=== PATIENT | female | born 1980 | race Caucasian/White ===

== ENCOUNTER 2023-11-28 13:29 | Emergency (ER) | payer OTHER, SELFPAY ==
[2023-11-28 13:40] VITALS: BP 140/96
--- NOTE | 2023-11-28 14:01 | ED.GENMED ---
History of Present Illness
General
Chief Complaint: Headache
Source: patient
Time Seen by Provider: 11/28/23 13:50
Travel History
Have you had any contact with someone who has COVID-19?: No
Do you have any symptoms of coronavirus? Fever > 100 degrees, chills, cough, shortness of breath, sore throat, loss of taste or smell, muscle aches, or headache?: No
History of Present Illness
History of Present Illness:
43-year-old female presents to the emergency room complaining of abnormal feeling on the left side of her face. Patient looked in the mirror and noted that her smile was asymmetric. Patient was in her usual state of health until 2 or 3 days ago
she began experiencing a discomfort in her left temporal occipital region. She was seen at an urgent care and started on Naprosyn. Today when she woke up she felt a unusual sensation in the left side of her face. She noted less movement when she
looked in the mirror prompting her visit to the ER. She denies any other weakness numbness or tingling. No known tick bites.
Phy Exam
Physical Exam
Physical Exam:
General: Awake, Alert, Oriented X3. No acute distress.
Vitals: unremarkable
Head: Atraumatic
Eyes: Pupils equal, EOMI
Throat: Airway intact, no exudates
Neck: Trachea midline
Lungs: Clear and equal b/l
Heart: Regular rate, no murmurs
Abd: Soft, Nontender, No pulsatile mass
Neuro: Very mildly facial droop which does appear to include the forehead, muscle strength equal bilaterally, cerebellar exam normal
Skin: Warm, dry, no rash
Extremities: pulses equal b/l, no edema
Course
Orders/Labs/Results
Orders:
Orders
11/28/23 13:59
CT Head W/o Iv Contrast Urgent
Comment:
Reason For Exam: headache, left facial palsy
Test Result ONCE
11/28/23 14:17
Basic Metabolic Panel Urgent
Complete Blood Count/With Diff Urgent
HCG, Serum Qualitative Screen Urgent
Lyme Progressive Urgent
11/28/23 15:27
EKG [Electrocardiogram (*1)] Stat
Reason for Study: Palpitations
EKG- Treatment ONCE
Abnormal Lab Results
11/28/23
14:17
RBC 4.07 L 10^6/uL
(4.20-5.40)
Hct 35.6 L %
(37.0-47.0)
11/28/23 14:17
11/28/23 14:17
Vital Signs
Initial and Last Documented VS:
Initial Vital Signs
Temp Pulse Resp BP Pulse Ox
98.3 F 68 16 140/96 98
11/28/23 13:40 11/28/23 13:40 11/28/23 13:40 11/28/23 13:40 11/28/23 13:40
Last Documented Vital Signs
Temp Pulse Resp BP Pulse Ox
98.2 F 71 18 115/58 98
11/28/23 16:46 11/28/23 16:46 11/28/23 16:46 11/28/23 16:46 11/28/23 16:46
MDM/Problems Addressed
Differential Diagnosis Includes:
Rodgers's palsy, Lyme disease, essential event
MDM/Problems Addressed:
Patient has no other focal neurologic deficits. Exam consistent with a peripheral nerve lesion as the patient's left lid is slightly weaker particular on repeat evaluation. Treat with Valtrex and steroids. Lyme titer pending.
*Radiology
Radiology exam reviewed: radiology read reviewed
*EKG
Interpreted by ED Provider?: Yes
Interpretation: abnormal
Heart Rate: 61
Rate: normal
Rhythm: sinus and PAC's
[place]: normal axis
Interval: normal interval
QRS Pattern: normal QRS
Ischemia: no ischemia
*Critical Care Note
Total Time (30-74mins, 75-104mins- exclusive of procedures): Not Applicable
ED Attending Note
-
Portions of this chart may have been created with voice recognition software.� Occasional wrong word or��sound alike� substitutions may have occurred due to the inherent limitations of voice recognition software.
Discharge Plan
Departure
Patient Disposition: Home (Routine Discharge)
Date of Disposition: 11/28/23
Time of Disposition: 16:04
Patient with high blood pressure during this ER visit?: No
Condition: Good
Discharge Problem:
Rodgers's palsy
Instructions: Rodgers's palsy
Prescriptions:
New
valacyclovir [Valtrex] 1 gram tablet
1,000 mg PO TID Qty: 21 0RF
prednisone 50 mg tablet
50 mg PO DAILY Qty: 5 0RF
Referrals:
Wade Wheat DO [Family Provider] -
Interventions
Interventions:
*Risk Screen - Suicide Last Done: 11/28/23 13:40
*General Assessment Last Done: 11/28/23 13:40
*Neglect/Abuse Screening Last Done: 11/28/23 13:40
ED- Fall Risk Assessment Last Done: 11/28/23 14:24
*ED COVID-19 Vaccine History Last Done: 11/28/23 14:22
*Nursing Disposition Last Done: 11/28/23 16:46
ED- Neurological Assessment Last Done: 11/28/23 14:24
Discharge Date and Time
Discharge Date/Time: 11/28/23 16:47
Print Language: ITALIAN
[2023-11-28 14:21] VITALS: BP 119/65; BMI 28.2
[2023-11-28 14:31] LABS: % Basophils 1.1 % (0-2); % Eosinophils 2.3 % (0-6); % Immature Granulocytes 0.2 % (0-0.5); % Lymphocytes 25.4 % (20.5-51.1); % Monocytes 7.3 % (1.7-9.3); % Neutrophils 63.7 % (42.2-75.2); Absolute Basophils 0.1 10^3/uL (0-0.2); Absolute Eosinophils 0.2 10^3/uL (0-0.7); Absolute Lymphocytes 1.7 10^3/uL (1.2-3.4); Absolute Monocytes 0.5 10^3/uL (0.1-0.6); Absolute Neutrophils 4.2 10^3/uL (1.4-6.5); Hematocrit 35.6 % (37.0-47.0); Hemoglobin 12.2 g/dL (12.0-16.0); Mean Corp Hgb Conc. 34.3 g/dL (33.0-37.0); Mean Corpuscular Volume 87.5 fL (81.0-99.0); Mean Platelet Volume 9.2 fL (7.4-10.4); Nucleated Red Blood Cells % 0 %; Platelet Count 321 10^3/uL (130-400); Red Blood Cell Count 4.07 10^6/uL (4.20-5.40); White Blood Cell Count 6.6 10^3/uL (4.8-10.8)
[2023-11-28 14:44] LABS: HCG, Serum Qualitative Screen Negative
[2023-11-28 14:47] LABS: Blood Urea Nitrogen 17 mg/dl (7-17); Calcium 9.1 mg/dl (8.4-10.2); Carbon Dioxide 25 mmol/L (22-30); Chloride 105 mmol/L (98-107); Estimated Creatinine Clearance 113 ml/min; Glucose 97 mg/dl (70-99); Potassium 4.4 mmol/L (3.5-5.1); Sodium 135 mmol/L (135-145); eGFR > 60.00
[2023-11-28 15:00] VITALS: BP 119/81
[2023-11-28 16:15] VITALS: BP 115/40
[2023-11-28 16:46] VITALS: BP 115/58
[2023-11-30 16:32] LABS: Lyme Antibody Screen, EIA Negative (Negative)
== END 2023-11-28 16:47 | disposition home or self-care (01) ==
LOC: EMR 13:29
PROVIDERS: EMERGENCY PHYSICIAN Emergency Medicine; FAMILY PHYSICIAN Family Medicine
DX: G51.0 Bell's palsy (principal)
CPT/HCPCS: 99285; 70450; 80048; 84703; 85025; 86618; 93005